=== PATIENT | female | born 1930 | race Caucasian/White ===

== ENCOUNTER → 2016-12-16 | Outpatient (CLI) | payer MEDICARE ==
[~2016-12-16] MED LIST: ACET-822 PO; ALPR0.25 PO; AMLO5CAP PO; ASPI-110 PO; ATEN100T PO; ATOR40TA16 PO; CALCTAB94 PO; ENAL1SOL2 PO; ENAL20TA PO; FLAX1000 PO; FOLI400T PO; HYDR25TA5 PO; LEVO50TA4 PO; MELA3TAB23 PO; NAPR500T PO; OCUVTAB PO; PYRI100T PO; SERT-129 PO; TRAM50TA PO; VITA10002 PO; WHEA1POW9 PO
== END ==
LOC: CPRE 11:37
PROVIDERS: ATTEND Neurological Surgery
DX: Z01.812 Encounter for preprocedural laboratory examination (principal); S22.079A Unspecified fracture of T9-T10 vertebra, initial encounter for closed fracture; X58.XXXA Exposure to other specified factors, initial encounter

== ENCOUNTER → 2016-12-17 | Day surgery (SDC) | payer MEDICARE ==
[~2016-12-17] VITALS: Ht 157.5 cm; Wt 58.2 kg
[~2016-12-17] MED LIST changes: +BUPIVACAINE/EPINEPHRINE 0.5% PF 30 ML VIAL ONE; +CHLORHEXIDINE GLUCONATE 2 % 1 PACK (2 CLOTHS) TOPICAL PRN; +DO NOT ADM ANY ANTICOAGULANT DRUGS PRN; -ENAL1SOL2 PO; +FAMOTIDINE 20 MG/2 ML VIAL ONE; +INSULIN HUMAN REGULAR 1,000 UNITS/10 ML VIAL SQ PRN; +LACTATED RINGER'S 1000 ML IV PRN; +METOPROLOL TARTRATE 25 MG TAB PO PRN; +MIDAZOLAM HCL 2 MG/2 ML VIAL ONE; +NEOSTIGMINE 3 MG/3 ML SYR IV ONE; +ONDANSETRON HCL 4 MG/2 ML VIAL IV PUSH ONE; +POVIDONE IODINE 5% (ANTISEPSIS KIT) 4 APPLICATIONS EACH NARE PRN; +PROPOFOL 200 MG/20 ML AMP IV ONE; +SODIUM CHLOR 0.9% 1000 ML INJ 1,000 ML IV SCH; +SODIUM CHLORID 0.9% 500 ML IV PRN; +SUGAMMADEX SODIUM 200 MG/2 ML VIAL IV PUSH ONE; +VANCOMYCIN HCL 1000 MG ON-CALL/NS 250 ML IV SCH; +ceFAZolin INJ 1,000 MG VIAL ONE; +ePHEDrine/NS 25 MG/5 ML SYR IV ONE; +fentaNYL CITRATE 250 MCG/5 ML AMP ONE
[2016-12-17 06:41] VITALS: BP 171/73; PULSE 59; RESP 16; TEMP 98.1; O2SAT 99
--- NOTE | 2016-12-17 09:32 | PD.OP ---
Jennifer Hines MD Operative Report Date of Surgery: Dec 17, 2016 Preoperative Diagnosis: Intractable back pain from T10 vertebral body compression fracture Postoperative Diagnosis: Same Procedure: Thoracic T10 kyphoplasty Anesthesia: Gen. endotracheal by Jigar Porter Surgeon: Fernando Bishop M.D. Cracking Still Operator(s): None Operation and Findings: Following administration of a general endotracheal anesthesia patient was placed in the prone position on chest rolls and Lencho table and all pressure points adequate padded. IV antibiotics were administered intravenously and the thoracolumbar area posteriorly prepped with a Betadine solution and painted and draped in the usual sterile fashion. Using AP and lateral arthroscopy guidance the stab incision sites were made at the T10 level overlying the pedicles bilaterally after infiltrating the skin was 0.5% Marcaine. The Jamshidi needles were then passed into the vertebral body to the pedicles on both sides and the hand-held drill trajectory created. The drills were then removed and then the balloons were passed into the vertebral body through both sides and dilated to create a cavity and restore vertebral body height. Subsequently the balloons were removed and the cavity packed with the bone cement 4 cc total. The guide was then removed and Steri-Strips applied at the puncture wounds along with a sterile dressing. He was then turned in spine position, extubated and taken to the recovery room. There were no intraoperative medications and all sponge and needle count was correct at the end the procedure. Estimated blood loss less than 5 cc. Fernando Bishop MD Dec 17, 2016 09:32
--- NOTE | 2016-12-17 10:05 | RADRPT ---
EXAM DATE/TIME: 12/17/2016 09:24 [facility] COMPARISON: No previous studies available for comparison. INDICATIONS : Post-op T-10 kyphoplasty. MEDICAL HISTORY : None. SURGICAL HISTORY : None. ENCOUNTER: Initial ACUITY: 1 day PAIN SCORE: Non-responsive. LOCATION: Thoracic spine. FINDINGS: Underlying is anatomic status post T10 kyphoplasty. There is good filling ofthe cement. There is no epidural cement. CONCLUSION: T10 kyphoplasty in anatomic alignment. Nakul Oquendo MD FACR on December 17, 2016 at 10:02 Board Certified Radiologist. This report was verified electronically.
[2016-12-17 11:52] VITALS: BP 142/67; PULSE 57; RESP 16; O2SAT 97
[2016-12-17 12:23] VITALS: TEMP 96
== END | disposition home or self-care (01) ==
LOC: HSDC 05:44
PROVIDERS: ATTEND Neurological Surgery
DX: S22.079A Unspecified fracture of T9-T10 vertebra, initial encounter for closed fracture (principal); I10 Essential (primary) hypertension; E78.5 Hyperlipidemia, unspecified; K21.9 Gastro-esophageal reflux disease without esophagitis; F41.9 Anxiety disorder, unspecified; E03.9 Hypothyroidism, unspecified; M19.90 Unspecified osteoarthritis, unspecified site; Z88.1 Allergy status to other antibiotic agents; Z88.8 Allergy status to other drugs, medicaments and biological substances; Z79.82 Long term (current) use of aspirin; W18.30XA Fall on same level, unspecified, initial encounter
CPT/HCPCS: 22513; 72070; J2250; J2405; J2710; J3010; J3370; J7050; J7120; J0690

== ENCOUNTER 2017-04-30 19:46 | Emergency (ER) | payer MEDICARE ==
[~2017-04-30] VITALS: Ht 157.5 cm; Wt 58.8 kg
[~2017-04-30 19:46] MED LIST changes: -ACET-822 PO; -BUPIVACAINE/EPINEPHRINE 0.5% PF 30 ML VIAL ONE; -CHLORHEXIDINE GLUCONATE 2 % 1 PACK (2 CLOTHS) TOPICAL PRN; -DO NOT ADM ANY ANTICOAGULANT DRUGS PRN; -FAMOTIDINE 20 MG/2 ML VIAL ONE; -INSULIN HUMAN REGULAR 1,000 UNITS/10 ML VIAL SQ PRN; -LACTATED RINGER'S 1000 ML IV PRN; -METOPROLOL TARTRATE 25 MG TAB PO PRN; -MIDAZOLAM HCL 2 MG/2 ML VIAL ONE; -NEOSTIGMINE 3 MG/3 ML SYR IV ONE; -ONDANSETRON HCL 4 MG/2 ML VIAL IV PUSH ONE; -POVIDONE IODINE 5% (ANTISEPSIS KIT) 4 APPLICATIONS EACH NARE PRN; -PROPOFOL 200 MG/20 ML AMP IV ONE; -SODIUM CHLOR 0.9% 1000 ML INJ 1,000 ML IV SCH; -SODIUM CHLORID 0.9% 500 ML IV PRN; -SUGAMMADEX SODIUM 200 MG/2 ML VIAL IV PUSH ONE; -TRAM50TA PO; -VANCOMYCIN HCL 1000 MG ON-CALL/NS 250 ML IV SCH; -ceFAZolin INJ 1,000 MG VIAL ONE; -ePHEDrine/NS 25 MG/5 ML SYR IV ONE; -fentaNYL CITRATE 250 MCG/5 ML AMP ONE
[2017-04-30 20:05] VITALS: BP 166/80; PULSE 65; RESP 20; TEMP 98; O2SAT 98
--- NOTE | 2017-04-30 21:15 | PD ---
HPI . Posterior cephalgia Chief Complaint: Back/ Neck Pain or Injury Time Seen by Provider: 20:16 Travel History International Travel<30 days: No Contact w/Intl Traveler<30days: No Traveled to known affect area: No History of Present Illness HPI 86-year-old female presents to the emergency department for evaluation of acute onset posterior cephalgia that started this afternoon when she was sitting at her desk doing paperwork. Patient states the pain was so severe and sudden that she did not know what to do. She tried to rest thinking it would resolve. It has not resolved. It is localized to the left lateral aspect of the posterior skull. The patient denies being on any blood thinners. Patient denies any paresthesias. The patient denies any fevers, chills, malaise, chest pain, shortness breath. There is no focal neurological deficit at this time. Patient does not have a history of CVA. Patient states there are no alleviating factors. The patient is not photophobic. PFSH Past Medical History Arthritis: Yes Asthma: No Depression: Yes Heart Rhythm Problems: No Cancer: No Cardiovascular Problems: No High Cholesterol: Yes Chest Pain: No Congestive Heart Failure: No COPD: No Cerebrovascular Accident: No Diabetes: No Diminished Hearing: Yes (bilaterally) Endocrine: Yes GERD: No Genitourinary: No Headaches: No Hepatitis: No Hiatal Hernia: Yes Hypertension: Yes Immune Disorder: No Kidney Stones: No Musculoskeletal: Yes ("polymyalgia in remission" CHRONIC BACK PAIN) Neurologic: No Psychiatric: Yes (ANXIETY) Reproductive: No Respiratory: No Immunizations Current: Yes Migraines: No Myocardial Infarction: No Renal Failure: No Seizures: No Sleep Apnea: No Thyroid Disease: Yes (HYPO) Ulcer: No Tetanus Vaccination: > 5 Years Influenza Vaccination: Yes Past Surgical History Abdominal Surgery: No AICD: No Appendectomy: No Cardiac Surgery: No Cholecystectomy: No Ear Surgery: No Endocrine Surgery: No Eye Surgery: Yes (bilateral cataract surgery) Genitourinary Surgery: No Gynecologic Surgery: Yes (HYSTERECTOMY) Hysterectomy: Yes (1971,complete) Joint Replacement: No Oral Surgery: No Pacemaker: No Thoracic Surgery: No Other Surgery: Yes Social History Alcohol Use: Yes ("wine with dinner") Tobacco Use: No (quit 1988) Substance Use: No Allergies-Medications (Allergen,Severity, Reaction): Coded Allergies: metronidazole (Unverified Allergy, Severe, rash, 10/14/17) RASH hydrocodone (Unverified Allergy, Unknown, 04/30/17) lovastatin (Unverified Allergy, Unknown, 04/30/17) verapamil (Unverified Allergy, Unknown, 04/30/17) paroxetine (Unverified Adverse Reaction, Severe, nausea, 04/30/17) NAUSEA Reported Meds & Prescriptions Reported Meds & Active Scripts Active Reported Enalapril (Enalapril Maleate) 20 Mg Tab 20 Mg PO BID Vitamin B-6 (Pyridoxine HCl) 100 Mg Tab 100 Mg PO DAILY Vitamin B-12 (Cyanocobalamin) 1,000 Mcg Tab 1,000 Mcg PO DAILY Sertraline (Sertraline HCl) 100 Mg Tab 100 Mg PO DAILY Ocuvite (Multiple Vitamins W/ Minerals) 1 Tab 1 Tab PO DAILY Naproxen 500 Mg Tab 500 Mg PO BID Melatonin Cr (Melatonin) 3 Mg Tab 1 Tab PO HS Levothyroxine (Levothyroxine Sodium) 50 Mcg Tab 50 Mcg PO DAILY Hydrochlorothiazide 25 Mg Tab 25 Mg PO DAILY Folic Acid 400 Mcg Tab 400 Mcg PO DAILY Flaxseed Oil (Flaxseed (Linseed)) 1,000 Mg Cap 1 Tab PO DAILY Calcium 600 (Calcium Carbonate) 1,500 Mg Tab 1,500 Mg PO Benefiber (Wheat Dextrin) 144 Gm Powder 1 Tab-Cap PO DAILY PRN Atorvastatin (Atorvastatin Calcium) 40 Mg Tab 40 Mg PO HS Atenolol 100 Mg Tab 100 Mg PO DAILY Aspirin 81 (Aspirin) 81 Mg Tabdr 81 Mg PO DAILY Amlodipine-Benazepril 5-10 Mg Cap 1 Cap PO DAILY Alprazolam 0.25 Mg Tab 0.25 Mg PO DAILY PRN Review of Systems Except as stated in HPI: all other systems reviewed are Neg Physical Exam Narrative GENERAL: Well-nourished, well-developed 86-year-old female patient in no respiratory distress. Patient is moaning and holding the occipital portion of her head. SKIN: Focused skin assessment warm/dry. HEAD: Normocephalic. Atraumatic. NEUROLOGICAL: Awake and alert. Cranial nerves II through XII intact. Motor and sensory grossly within normal limits. Five out of 5 muscle strength in all muscle groups. Normal speech. EYES: No scleral icterus. No injection or drainage. NECK: Supple, trachea midline. No JVD or lymphadenopathy. CARDIOVASCULAR: Regular rate and rhythm without murmurs, gallops, or rubs. RESPIRATORY: Breath sounds equal bilaterally. No accessory muscle use. GASTROINTESTINAL: Abdomen soft, non-tender, nondistended. MUSCULOSKELETAL: No cyanosis, or edema. BACK: Nontender without obvious deformity. No CVA tenderness. Data Data Last Documented VS Vital Signs Date Time Temp Pulse Resp B/P (MAP) Pulse Ox O2 Delivery O2 Flow Rate FiO2 04/30/17 20:05 98.0 65 20 166/80 (108) [address] Brain W/O Iv Contrast(Rout) (04/30/17 21:07) Ct Cerv Spine W/O Contrast (04/30/17 21:29) MDM Medical Decision Making Medical Screen Exam Complete: Yes Emergency Medical Condition: Yes Differential Diagnosis Differential diagnoses include but not limited to ICH, thunderclap headache, migraine headache, occipital neuralgia Narrative Course 86-year-old female presents to the emergency department for evaluation of sudden onset pain in the occipital portion of her head. The patient states this has never happened before. Brain CT ordered and pending. CT shows no acute abnormalities. Based on patient's symptoms, clinical presentation, radiological results, vital sign review and physical exam it is not necessary to admit the patient to the hospital or keep the patient in the emergency department for further evaluation. Patient will be given an IM injection of Toradol and discharged home with instructions to use ice and follow-up with her primary care. Diagnosis Primary Impression: Headache Qualified Codes: G44.53 - Primary thunderclap headache Patient Instructions: Acute Headache (ED), General Instructions Additional Instructions: Please return to emergency department if your symptoms return or worsen. Follow up with your primary care provider. May use [id number] Motrin or Tylenol as need for pain relief. Disposition: 01 DISCHARGE HOME Condition: Stable LilyVeronica hahn Lois ERNE Apr 30, 2017 21:15
--- NOTE | 2017-04-30 22:09 | RADRPT ---
EXAM DATE/TIME: 04/30/2017 21:28 [facility] COMPARISON: No previous studies available for comparison. INDICATIONS : Head and neck pain that started today. RADIATION DOSE: 53.18 CTDIvol (mGy) MEDICAL HISTORY : Hypertension. SURGICAL HISTORY : None. ENCOUNTER: Initial ACUITY: 1 day PAIN SCALE: 7/10 LOCATION: frontal TECHNIQUE: Multiple contiguous axial images were obtained of the head. Using automated exposure control and adj ustment of the mA and/or kV according to patient size, radiation dose was kept as low as reasonably a chievable to obtain optimal diagnostic quality images. DICOM format image data is available electro nically for review and comparison. FINDINGS: CEREBRUM: The ventricles are normal for age. No evidence of midline shift, mass lesion, hemorrhage or acute in farction. Chronic appearing hypodense changes are seen in the cerebral white matter. No extra-axial f luid collections are seen. POSTERIOR FOSSA: The cerebellum and brainstem are intact. The 4th ventricle is midline. The cerebellopontine angle i s unremarkable. EXTRACRANIAL: The visualized portion of the orbits is intact. SKULL: The calvaria is intact. No evidence of skull fracture. CONCLUSION: 1. Cerebral white matter hypodensity characteristic of chronic microvascular ischemic disease. 2. No evidence of acute infarct, hemorrhage, mass or edema. Ben St MD on April 30, 2017 at 22:06 Board Certified Radiologist. This report was verified electronically.
--- NOTE | 2017-04-30 22:12 | RADRPT ---
EXAM DATE/TIME: 04/30/2017 21:28 [facility] COMPARISON: No previous studies available for comparison. INDICATIONS : Left sided neck pain. RADIATION DOSE: 25.26 CTDIvol (mGy) MEDICAL HISTORY : Hypertension. SURGICAL HISTORY : None. ENCOUNTER: Initial ACUITY: 1 day PAIN SCALE: 8/10 LOCATION: Left neck TECHNIQUE: Volumetric scanning of the cervical spine was performed. Multiplanar reconstructions in the sagittal, coronal and oblique axial planes were performed. Using automated exposure control and adjustment o f the mA and/or kV according to patient size, radiation dose was kept as low as reasonably achievable to obtain optimal diagnostic quality images. DICOM format image data is available electronically f or review and comparison. FINDINGS: Cranial cervical and cervical vertebral body alignment is well maintained without evidence of listhes is. Vertebral body height is intact. There is no evidence of compression deformity. Posterior elements are intact. There is moderate left-sided facet arthropathy at C2-3, C3-4 and C4-5. Moderate to advanced degenerative disc disease is noted at C5-6 and C6-7. There is disc space narrowi ng with marginal spondylosis. There are no significant soft tissue abnormalities. CONCLUSION: Degenerative disc disease and facet arthropathy. No acute abnormality or significant soft tissue abnormality. Ben St MD on April 30, 2017 at 22:08 Board Certified Radiologist. This report was verified electronically.
[2017-04-30] MEDS ORDERED: KETOROLAC TROMETHAMINE 60 MG/2 ML (IM) VIAL IM ONE (22:45)
== END 2017-04-30 23:01 | disposition home or self-care (01) ==
LOC: PHEFT 19:46
DX: G44.53 Primary thunderclap headache (principal)
CPT/HCPCS: 70450; 72125; 96372; 99285; J1885

== ENCOUNTER 2018-04-25 11:01 | Observation (INO) ==
[2018-04-25] MEDS ORDERED: Sod Chloride 0.9% Inj 1,000 ML IV.CONT SCH (11:30)
--- NOTE | 2018-04-25 11:36 | ED ---
HPI General Chief complaint: Weakness Stated complaint: General Weakness Time Seen by Provider: 04/25/18 11:16 Source: patient and family Mode of arrival: EMS Limitations: no limitations History of Present Illness HPI narrative: This 87-year-old female has not been feeling well for the past month or so. She has had intermittent bouts of abdominal pain. When she has the abdominal pain it seems to be in the mid abdomen. It is sometimes associated with vomiting. She has been disoriented off and on. Her says that she gets confused at times but at other times she seems to be okay this morning she was getting up and she got very weak and she fell to her knees. He says he did not lose consciousness but she had to be put in bed at that time and he called paramedics she has no history of heart disease. She has not been having fever. He was seen here last week and was diagnosed with costochondritis. She did eat something this morning in general her appetite is been quite poor. She is not actually having abdominal pain now. Related Data Home Medications Medication Instructions Recorded Confirmed amlodipine 10 mg PO DAILY 04/16/18 04/25/18 atenolol 100 mg PO DAILY 04/16/18 04/25/18 atorvastatin 40 mg PO DAILY 04/16/18 04/25/18 calcium carbonate-vitamin D3 1 tab PO DAILY 04/16/18 04/25/18 [Calcium 600 + D(3)] cyanocobalamin (vitamin B-12) 500 mcg PO DAILY 04/16/18 04/25/18 [Vitamin B-12] enalapril maleate 20 mg PO BID 04/16/18 04/25/18 fish,bora,flax oils-om3,6,9no1 1 tab PO DAILY 04/16/18 04/25/18 [[place] 3-6-9] folic acid 0.8 mg PO DAILY 04/16/18 04/25/18 gabapentin 300 mg PO DAILY 04/16/18 04/25/18 hydrochlorothiazide 25 mg PO DAILY 04/16/18 04/25/18 levothyroxine 50 mcg PO DAILY 04/16/18 04/25/18 magnesium 500 mg PO DAILY 04/16/18 04/25/18 pyridoxine (vitamin B6) [Vitamin 100 mg PO QID 09/30/18 10/09/18 B-6] sertraline 50 mg PO DAILY 04/16/18 04/25/18 vit C-vit N-xmvfgg-[id number]-om-3 1 cap PO DAILY 04/16/18 04/25/18 [Ocuvite] Previous Rx's Medication Instructions Recorded ibuprofen 600 mg PO Q8H PRN #100 cap 04/16/18 ondansetron [Zofran ODT] 4 mg PO Q6-8H PRN #10 tab 04/16/18 Allergies Allergy/AdvReac Type Severity Reaction Status Date / Time metronidazole Allergy Severe rash Verified 04/16/18 22:12 hydrocodone Allergy Unknown unknown Verified 04/16/18 22:12 lovastatin Allergy Unknown unknown Verified 04/16/18 22:12 verapamil Allergy Unknown unknown Verified 04/16/18 22:12 paroxetine AdvReac Severe nausea Verified 04/16/18 22:12 Review of Systems Constitutional Reports malaise, Reports poor appetite and Reports weakness Gastrointestinal Reports abdominal pain and Reports nausea Neurologic Reports confusion and Reports weakness [facility] Medical History Medical History History of anxiety (Acute) History of depression (Acute) History of high blood pressure (Acute) History of high cholesterol (Acute) History of hypothyroidism (Acute) Hx of chronic arthritis (Acute) Hx of hysterectomy (Acute) Hx of insomnia (Acute) Surgical History Surgical History History of back surgery (Acute) Social History Social History Substance History: No History of Abuse Smoking Status: Former smoker Tobacco Type: Cigarettes How Often Do You Have a Drink Containing Alcohol: 4 or more times a week Recent Travel in [facility] within the Last 8 Weeks: No Recent Out of Country Travel within the Last 8 Weeks: No Immunization History Tetanus Immunization: Unsure Exam Narrative Exam Narrative: GENERAL: Well-developed female SKIN: Focused skin assessment warm/dry. HEAD: Atraumatic. Normocephalic. EYES: Pupils equal and round. No scleral icterus. No injection or drainage. ENT: No nasal bleeding or discharge. Mucous membranes pink and moist. NECK: Trachea midline. No JVD. CARDIOVASCULAR: Regular rate and rhythm. No murmur appreciated. RESPIRATORY: No accessory muscle use. Clear to auscultation. Breath sounds equal bilaterally. GASTROINTESTINAL: Abdomen soft, there is some epigastric tenderness, nondistended. Hepatic and splenic margins not palpable. MUSCULOSKELETAL: No obvious deformities. No clubbing. No cyanosis. No edema. NEUROLOGICAL: Awake and alert. No obvious cranial nerve deficits. Motor grossly within normal limits. Normal speech. PSYCHIATRIC: Appropriate mood and affect; insight and judgment normal. She is oriented x3 at this time Course Initial Documented Vital Signs Temperature 98.0 F 04/25/18 11:07 Pulse Rate 48 L 04/25/18 11:07 Respiratory Rate 15 04/25/18 11:07 Blood Pressure 105/46 L 04/25/18 11:07 Pulse Oximetry 99 04/25/18 11:07 Last Documented Vital Signs Temperature 98.0 F 04/25/18 11:07 Pulse Rate 46 L 04/25/18 13:20 Respiratory Rate 14 04/25/18 13:20 Blood Pressure 108/47 L 04/25/18 13:20 Pulse Oximetry 98 04/25/18 13:20 Medical Decision Making [facility] Narrative Medical decision making narrative: Patient presents with intermittent fusion and altered mental status. She has generalized weakness and intermittent abdominal pain. CT of the abdomen and pelvis does not reveal an etiology. Case discussed with Dr. Torres and she will be admitted for observation Medical Screen Exam Complete: Yes Emergency Medical Condition: Yes Differential Diagnosis Differential Diagnosis: Differential includes electrolyte imbalance, dehydration , subdural hemorrhage, diverticulitis, Lab Data Result diagrams: 04/25/18 11:44 04/25/18 11:44 Lab Results 04/25/18 04/25/18 04/25/18 Range/Units 11:44 11:44 11:44 CBC w Diff Auto diff final WBC 11.9 H (4.0-11.0) th/mm3 RBC 3.43 L (4.00-5.30) mil/mm3 Hgb 9.9 L (11.6-15.3) gm/dL Hct 30.6 L (35.0-46.0) % MCV 89.2 (80.0-100.0) fL MCH 28.8 (27.0-34.0) pg MCHC 32.3 (32.0-36.0) % RDW 12.7 (11.6-17.2) % Plt Count 505 H (150-450) th/mm3 MPV 6.5 L (7.0-11.0) fL Neut % (Auto) 78.3 H (16.0-70.0) % Lymph % (Auto) 12.6 (9.0-44.0) % [place] % (Auto) 8.2 H (0.0-8.0) % Eos % (Auto) 0.6 (0.0-4.0) % Baso % (Auto) 0.3 (0.0-2.0) % Neut # (Auto) 9.4 H (1.8-7.7) th/mm3 Lymph # (Auto) 1.5 (1.0-4.8) th/mm3 [place] # (Auto) 1.0 H (0.0-0.9) th/mm3 Eos # (Auto) 0.1 (0.0-0.4) th/mm3 Baso # (Auto) 0.0 (0.0-0.2) th/mm3 WBC Differential . Differential Comment . PT 10.4 (9.8-11.6) sec INR 1.0 Ratio APTT 31.8 H (24.3-30.1) sec Sodium 122 L* (136-145) meq/L Potassium 3.6 (3.5-5.1) meq/L Chloride 81 L (98-107) meq/L Carbon Dioxide 30.7 (21.0-32.0) meq/L Anion Gap 10 (5-15) meq/L BUN 23 H (7-18) mg/dL Creatinine 1.60 H (0.50-1.00) mg/dL Estimated GFR 30 L (>89) mL/min Random Glucose 100 (74-106) mg/dL Calcium 8.4 L (8.5-10.1) mg/dL Total Bilirubin 0.4 (0.2-1.0) mg/dL AST 34 (15-37) U/L ALT 27 (10-53) U/L Alkaline Phosphatase 91 (45-117) U/L Troponin I Less than 0.02 L (0.02-0.05) ng/mL Total Protein 6.9 (6.4-8.2) g/dL Albumin 2.8 L (3.4-5.0) g/dL Lipase 204 (73-393) U/L TSH (0.358-3.740) uIU/mL 04/25/18 Range/Units 11:44 CBC w Diff WBC (4.0-11.0) th/mm3 RBC (4.00-5.30) mil/mm3 Hgb (11.6-15.3) gm/dL Hct (35.0-46.0) % MCV (80.0-100.0) fL MCH (27.0-34.0) pg MCHC (32.0-36.0) % RDW (11.6-17.2) % Plt Count (150-450) th/mm3 MPV (7.0-11.0) fL Neut % (Auto) (16.0-70.0) % Lymph % (Auto) (9.0-44.0) % [place] % (Auto) (0.0-8.0) % Eos % (Auto) (0.0-4.0) % Baso % (Auto) (0.0-2.0) % Neut # (Auto) (1.8-7.7) th/mm3 Lymph # (Auto) (1.0-4.8) th/mm3 [place] # (Auto) (0.0-0.9) th/mm3 Eos # (Auto) (0.0-0.4) th/mm3 Baso # (Auto) (0.0-0.2) th/mm3 WBC Differential Differential Comment PT (9.8-11.6) sec INR Ratio APTT (24.3-30.1) sec Sodium (136-145) meq/L Potassium (3.5-5.1) meq/L Chloride (98-107) meq/L Carbon Dioxide (21.0-32.0) meq/L Anion Gap (5-15) meq/L BUN (7-18) mg/dL Creatinine (0.50-1.00) mg/dL Estimated GFR (>89) mL/min Random Glucose (74-106) mg/dL Calcium (8.5-10.1) mg/dL Total Bilirubin (0.2-1.0) mg/dL AST (15-37) U/L ALT (10-53) U/L Alkaline Phosphatase (45-117) U/L Troponin I (0.02-0.05) ng/mL Total Protein (6.4-8.2) g/dL Albumin (3.4-5.0) g/dL Lipase (73-393) U/L TSH 5.020 H (0.358-3.740) uIU/mL Imaging Data Radiologist's impression: Abdomen/Pelvis CT 04/25/18 11:28 CONCLUSION: 1. Mild diverticulosis with no definite inflammatory change. 2. Unremarkable appearing gallbladder. 3. There is a small amount of fluid in the cul-de-sac which is nonspecific finding. 4. No visualized etiology to explain the patient's pain. Chest X-Ray 04/25/18 11:28 CONCLUSION: No acute intrathoracic disease. Stable examination. Head CT 04/25/18 11:32 CONCLUSION: 1. No acute hemorrhage or mass effect. 2. Stable atrophy and chronic small vessel ischemic changes. . Discharge Plan Discharge Disposition Patient Disposition: 30 Still Patient Discharge Details Diagnosis: Hyponatremia Physicians Team ED Provider: Gerard Hardy Rxs /Orders / Referrals /Forms Prescriptions: No Action atorvastatin 40 mg Tablet 40 mg PO DAILY RF: 0 atenolol 100 mg Tablet 100 mg PO DAILY RF: 0 enalapril maleate 20 mg Tablet 20 mg PO BID RF: 0 cyanocobalamin (vitamin B-12) [Vitamin B-12] 1,000 mcg Tablet 500 mcg PO DAILY RF: 0 amlodipine 10 mg Tablet 10 mg PO DAILY RF: 0 levothyroxine 50 mcg Tablet 50 mcg PO DAILY RF: 0 gabapentin 300 mg Capsule 300 mg PO DAILY RF: 0 magnesium 250 mg Tablet 500 mg PO DAILY RF: 0 hydrochlorothiazide 25 mg Tablet 25 mg PO DAILY RF: 0 pyridoxine (vitamin B6) [Vitamin B-6] 100 mg Tablet 100 mg PO QID RF: 0 sertraline 50 mg Tablet 50 mg PO DAILY RF: 0 folic acid 800 mcg Tablet 0.8 mg PO DAILY RF: 0 calcium carbonate-vitamin D3 [Calcium 600 + D(3)] 600-125 mg-unit Tablet 1 tab PO DAILY RF: 0 vit C-vit S-htxgcg-igb-om-3 [Ocuvite] 674-08-0-150 vf-eqmu-xg-mg Capsule 1 cap PO DAILY RF: 0 fish,bora,flax oils-om3,6,9no1 [[place] 3-6-9] 1,200 mg Capsule 1 tab PO DAILY RF: 0 ondansetron [Zofran ODT] 4 mg tablet,disintegrating 4 mg PO Q6-8H PRN (Reason: nausea and vomiting) Qty: 10 RF: 0 ibuprofen 200 mg capsule 600 mg PO Q8H PRN (Reason: pain) Qty: 100 RF: 0 Discharge Interventions Interventions: Vital Signs Last Done: 04/25/18 13:20 Status ED Status: With Doctor
[2018-04-25 11:53] LABS: Baso % (Auto) 0.3 % (0.0-2.0); Eos # (Auto) 0.1 th/mm3 (0.0-0.4); Eos % (Auto) 0.6 % (0.0-4.0); Hematocrit 30.6 % (35.0-46.0); Hemoglobin 9.9 gm/dL (11.6-15.3); Lymph # (Auto) 1.5 th/mm3 (1.0-4.8); Lymph % (Auto) 12.6 % (9.0-44.0); Mean Corpuscular HGB Conc 32.3 % (32.0-36.0); Mean Corpuscular Hemoglobin 28.8 pg (27.0-34.0); Mean Corpuscular Volume 89.2 fL (80.0-100.0); Mean Platelet Volume 6.5 fL (7.0-11.0); Mono % (Auto) 8.2 % (0.0-8.0); Neut # (Auto) 9.4 th/mm3 (1.8-7.7); Neut % (Auto) 78.3 % (16.0-70.0); Platelet Count 505 th/mm3 (150-450); Red Blood Count 3.43 mil/mm3 (4.00-5.30); Red Cell Distribution Width 12.7 % (11.6-17.2); White Blood Count 11.9 th/mm3 (4.0-11.0)
--- NOTE | 2018-04-25 12:00 | XR ---
EXAM DATE: 04/25/2018 11:28 AM EDT AGE/SEX: 87 years / Female INDICATIONS: Fatigue and weakness, fell. CLINICAL DATA: This is the patient's initial encounter. Patient reports that signs and symptoms have been present for 4 - 6 days and indicates a pain score of 2/10. MEDICAL/SURGICAL HISTORY: Hypothyroidism. Hypertension. Hypercholesterolemia. Arthritis. H ysterectomy. Back surgery. COMPARISON: [facility], XR CHEST PA AND LAT, 04/04/2018. . FINDINGS: A single AP view of the chest demonstrates the lungs to be symmetrically aerated without evidence of mass, infiltrate or effusion. The cardiomediastinal contours are unremarkable. Osseous structures a re intact. Previous kyphoplasty at T10. No significant change. CONCLUSION: No acute intrathoracic disease. Stable examination. Electronically signed by: Asif Taylor MD 04/25/2018 11:59 AM EDT
[2018-04-25 12:26] LABS: Alanine Aminotransferase 27 U/L (10-53); Albumin 2.8 g/dL (3.4-5.0); Alkaline Phosphatase 91 U/L (45-117); Anion Gap 10 meq/L (5-15); Aspartate Aminotransferase 34 U/L (15-37); Blood Urea Nitrogen 23 mg/dL (7-18); Calcium 8.4 mg/dL (8.5-10.1); Carbon Dioxide 30.7 meq/L (21.0-32.0); Chloride 81 meq/L (98-107); Glomerular Filtration Rate 30 mL/min (>89); Glucose,Random 100 mg/dL (74-106); Lipase 204 U/L (73-393); Potassium 3.6 meq/L (3.5-5.1); Total Protein 6.9 g/dL (6.4-8.2)
[2018-04-25 12:30] LABS: Sodium 122 meq/L (136-145)
[2018-04-25 13:06] LABS: Activated Partial Thrombo Time 31.8 sec (24.3-30.1); Prothrombin Time 10.4 sec (9.8-11.6)
--- NOTE | 2018-04-25 13:13 | CT ---
EXAM DATE: 04/25/2018 12:43 PM EDT AGE/SEX: 87 years / Female INDICATIONS: Altered mental status. General weakness. Fell this morning. CLINICAL DATA: This is the patient's initial encounter. Patient reports that signs and symptoms have been present for 1 day and indicates a pain score of 0/10. MEDICAL/SURGICAL HISTORY: Hypertension. Hysterectomy. Back surgery. RADIATION DOSE: 46.71 CTDI (mGy) COMPARISON: [facility], CT BRAIN W/O CONTRAST, 04/30/2017. . TECHNIQUE: CT of the head without contrast. Using automated exposure control and adjustment of the mA and/or kV according to patient size, radiation dose was kept as low as reasonably achievable to ob tain optimal diagnostic quality images. DICOM format image data is available electronically for revi ew and comparison. FINDINGS: Cerebrum: The ventricles are normal for age with moderate atrophic change again noted. Stable chroni c small vessel ischemic changes are again noted. No evidence of midline shift, mass lesion, hemorrhag e or acute infarction. No extraaxial fluid collections are seen. Posterior Fossa: The cerebellum and brainstem are intact. The 4th ventricle is midline. The cerebe llopontine angle is unremarkable. Extracranial: The visualized portion of the orbits is intact. Skull: The calvaria is intact. No evidence of skull fracture. CONCLUSION: 1. No acute hemorrhage or mass effect. 2. Stable atrophy and chronic small vessel ischemic changes. . Electronically signed by: Mateo Wooten MD 04/25/2018 1:11 PM EDT
--- NOTE | 2018-04-25 13:24 | CT ---
EXAM DATE: 04/25/2018 11:28 AM EDT AGE/SEX: 87 years / Female INDICATIONS: Intermittent non specific abdominal pain. CLINICAL DATA: This is the patient's initial encounter. Patient reports that signs and symptoms have been present for 3 weeks and indicates a pain score of 6/10. MEDICAL/SURGICAL HISTORY: Hypertension. Hypercholesterolemia. Hypothyroidism. Hysterectomy. B ack surgery. RADIATION DOSE: 6.96 CTDI (mGy) COMPARISON: POI, CT ABDOMEN AND PELVIS W/ CONTRAST, 11/26/2015. . TECHNIQUE: Multiple contiguous axial images were obtained through the abdomen. Images were obtained using multiple row detector helical technique. Using automated exposure control and adjustment of the mA and/or kV according to patient size, radiation dose was kept as low as reasonably achievable to o btain optimal diagnostic quality images. DICOM format image data is available electronically for rev iew and comparison. FINDINGS: Lower Lungs: The visualized lower lungs are clear. Liver: The liver has a homogeneous density without space-occupying lesion. There is no dilation of th e biliary tree. The gallbladder remains unremarkable in appearance. Spleen: Homogeneous density without enlargement. Pancreas: Unremarkable without mass or calcification. Kidneys: Normal in size and shape. No evidence of mass or hydronephrosis. Adrenal Glands: Unremarkable. Aorta: The aorta and proximal iliac vessels are grossly unremarkable without aneurysmal dilation. Bowel/Mesentery: Multiple diverticuli noted in the sigmoid colon with no definite inflammatory ramirez e. There is a small amount of fluid noted in the posterior pelvis. No oral or intravenous contrast wa s given limiting the sensitivity of the exam. The cecum and sigmoid colon have a normal configuration . Abdominal Wall: Intact. Retroperitoneum: No evidence of adenopathy in the retrocrural, para-aortic, or deep pelvic regions. Bladder: Contours are smooth. Reproductive Organs: No abnormal masses or calcifications seen. Is post hysterectomy. There are mult iple calcified phleboliths in the pelvis. Inguinal: The inguinal region is unremarkable without evidence of adenopathy. Bony Structures: Osteopenia, degenerative change and mild scoliosis are again noted. The patient is status post kyphoplasty in the lower thoracic spine. CONCLUSION: 1. Mild diverticulosis with no definite inflammatory change. 2. Unremarkable appearing gallbladder. 3. There is a small amount of fluid in the cul-de-sac which is nonspecific finding. 4. No visualized etiology to explain the patient's pain. Electronically signed by: Mateo Wooten MD 04/25/2018 1:22 PM EDT
[2018-04-25 14:28] LABS: Bilirubin,Urine Negative (Negative); Clarity,Urine Clear (Clear); Color,Urine Yellow (Yellw/Straw); Glucose,Urine (UA) Negative (Negative); Leukocyte Esterase,Urine Negative (Negative); Nitrite,Urine Negative (Negative); PH,Urine 6.5 (5.0-8.5); Specific Gravity,Urine Less/Equal 1.005 (1.002-1.035); Urobilinogen,Urine 0.2 mg/dL (Less than 2)
[2018-04-25 14:33] LABS: Squamous Epithelial Cell,Urine 0-5 /hpf (0-5)
[2018-04-25] MEDS ORDERED: Bisacodyl 10 MG Supp RECTAL PRN (15:40)
--- NOTE | 2018-04-25 16:51 | P.HP ---
History of Present Illness Service: [facility] hospitalist Primary Care Physician: Jennifer Garcia MD Chief Complaint: weakness recurrent abdominal pain History of Present Illness: HPI narrative: This 87-year-old female has not been feeling well for the past month or so. She has had intermittent bouts of abdominal pain. When she has the abdominal pain it seems to be in the mid abdomen. It is sometimes associated with vomiting and nausea. She has been disoriented off and on. Her says that she gets confused at times but at other times she seems to be okay this morning she was getting up and she got very weak and she fell to her knees. He says he did not lose consciousness but she had to be put in bed at that time and he called paramedics she has no history of heart disease. She has not been having fever. He was seen here last week and was diagnosed with costochondritis. She did eat something this morning in general her appetite is been quite poor. She states since having abdominal pain the appetite has been poor ,she called PCP and was just started on prilosec yesterday. Denies any BRBPR, chest pain,SOB did have UTI in february. Denies syncope some unsteadiness. Related Data Home Medications - Diagnosis (1) Weakness (2) Abdominal pain (3) Hypertension (4) Hyponatremia Review of Systems All other systems reviewed negative except as stated in HPI PMFSH - History History Provided By: Patient, Significant Other - Medical History Medical History: Medical History (Last Reviewed 04/25/18 @ 16:46 by Gustabo Torres MD) History of anxiety History of depression History of high blood pressure History of high cholesterol History of hypothyroidism Hx of chronic arthritis Hx of hysterectomy Hx of insomnia - Surgical History Surgical History: Surgical History (Last Reviewed 04/25/18 @ 16:46 by Gustabo Torres MD) History of back surgery - Social History I have reviewed the patient's Social History: Yes - Tobacco History Second Hand Smoke Exposure: No Tobacco Use In Past 30 Days: No Smoking Status: Former smoker Tobacco Type: Cigarettes - Alcohol History How Often Do You Have a Drink Containing Alcohol: 4 or more times a week - Substance Use History Substance History: No History of Abuse - Travel History Recent Travel in the [facility] Within the Last 8 Weeks: No Recent Travel Out of the Country Within the Last 8 Weeks: No - Immunization History Tetanus Immunization: Unsure Medications and Allergies Active Medications: Active Medications Al Hydroxide/Mg Hydroxide (Milk Of Magnesia Liq) 30 ml PO Q12H PRN PRN Reason: Mild Constipation Amlodipine Besylate (Norvasc) 10 mg PO DAILY [facility] Atenolol (Tenormin) 50 mg PO DAILY [facility] Atorvastatin Calcium (Lipitor) 40 mg PO DAILY [facility] Bisacodyl (Dulcolax Supp) 10 mg RECTAL DAILY PRN PRN Reason: SEVERE CONSITIPATION Calcium/Vitamin D (Oscal With D 250/125 Mg) 2 tab PO DAILY [facility] Cyanocobalamin (Vitamin B12) 500 mcg PO DAILY [facility] Enalapril Maleate (Vasotec) 20 mg PO BID [facility] Folic Acid (Folic Acid) 1 mg PO DAILY [facility] Gabapentin (Neurontin) 300 mg PO DAILY [facility] Sodium Chloride (Ns Inj) 1,000 mls @ 100 mls/hr IV.CONT .Q10H [facility] Stop: 04/25/18 21:29 Last Infusion: 04/25/18 15:00 Dose: 125 mls/hr Lactulose (Lactulose Liq) 30 ml PO DAILY PRN PRN Reason: SEVERE CONSITIPATION Levothyroxine Sodium (Synthroid) 50 mcg PO DAILY@0600 [facility] Magnesium Oxide (Mag-Ox) 400 mg PO DAILY@1100 [facility] Miscellaneous (Pill Splitter) 1 each OTHER UNSCH PRN PRN Reason: SEE LABEL COMMENTS Multivitamins/Minerals (Ocuvite With Lutein) 1 tab PO DAILY [facility] Ondansetron HCl (Zofran Odt) 4 mg PO Q6H PRN PRN Reason: nausea and vomiting Pantoprazole Sodium (Protonix Inj) 40 mg IV.PUSH ONCE ONE Stop: 04/25/18 16:33 Pantoprazole Sodium (Protonix Inj) 40 mg IV.PUSH Q24H [facility] Pyridoxine HCl (Vitamin B-6) 100 mg PO QID [facility] Senna/Docusate Sodium (Vero-Colace) 1 tab PO BID [facility] Sennosides (Senokot) 17.2 mg PO Q12H PRN PRN Reason: Moderate Constipation Sertraline HCl (Zoloft) 50 mg PO DAILY [facility] Sodium Chloride (Ns Flush) 2 ml IV.FLUSH PRN PRN PRN Reason: FLUSH AFTER USING IV ACCESS Allergies Allergy/AdvReac Type Severity Reaction Status Date / Time metronidazole Allergy Severe rash Verified 04/16/18 22:12 hydrocodone Allergy Unknown unknown Verified 04/16/18 22:12 lovastatin Allergy Unknown unknown Verified 04/16/18 22:12 verapamil Allergy Unknown unknown Verified 04/16/18 22:12 paroxetine AdvReac Severe nausea Verified 04/16/18 22:12 Home Medications Medication Instructions Recorded Confirmed Type amlodipine 10 mg PO DAILY 04/16/18 04/25/18 History atenolol 100 mg PO DAILY 04/16/18 04/25/18 History atorvastatin 40 mg PO DAILY 04/16/18 04/25/18 History calcium carbonate-vitamin D3 1 tab PO DAILY 04/16/18 04/25/18 History [Calcium 600 + D(3)] cyanocobalamin (vitamin B-12) 500 mcg PO DAILY 04/16/18 04/25/18 History [Vitamin B-12] enalapril maleate 20 mg PO BID 04/16/18 04/25/18 History fish,bora,flax oils-om3,6,9no1 1 tab PO DAILY 04/16/18 04/25/18 History [[place] 3-6-9] folic acid 0.8 mg PO DAILY 04/16/18 04/25/18 History gabapentin 300 mg PO DAILY 04/16/18 04/25/18 History hydrochlorothiazide 25 mg PO DAILY 04/16/18 04/25/18 History levothyroxine 50 mcg PO DAILY 04/16/18 04/25/18 History magnesium 500 mg PO DAILY 04/16/18 04/25/18 History pyridoxine (vitamin B6) [Vitamin 100 mg PO QID 04/16/18 04/25/18 History B-6] sertraline 50 mg PO DAILY 04/16/18 04/25/18 History vit C-vit [id number] 1 cap PO DAILY 04/16/18 04/25/18 History [Ocuvite] Exam Vital signs: Vital Signs 04/25/18 11:07 04/25/18 11:53 04/25/18 12:20 Temperature 98.0 F Pulse Rate 48 L 46 L 45 L Respiratory Rate 15 15 14 Blood Pressure 105/46 L 112/44 L 109/51 L Pulse Oximetry 99 99 99 04/25/18 13:20 04/25/18 15:00 04/25/18 15:25 Temperature 96.3 F L Pulse Rate 46 L 48 L 51 L Respiratory Rate 14 20 16 Blood Pressure 108/47 L 109/51 L 142/65 H Pulse Oximetry 98 97 99 Intake & Output 04/24/18 04/25/18 04/25/18 18:59 06:59 18:59 Intake Total 300 / 300 Balance 300 / 300 Weight 53.07 kg Intake: IV 300 / 300 NS Inj 1,000 ML @ 125 mls/hr IV 300 / 300 .CONT .Q8H [facility] Rx#:[id number] Narrative: GENERAL: SKIN: Warm and dry. HEAD: Atraumatic. Normocephalic. EYES: Pupils equal and round. No scleral icterus. No injection or drainage. ENT: No nasal bleeding or discharge. Mucous membranes pink and moist. NECK: Trachea midline. No JVD. CARDIOVASCULAR: Regular rate and rhythm. RESPIRATORY: No accessory muscle use. Clear to auscultation. Breath sounds equal bilaterally. GASTROINTESTINAL: Abdomen soft, non-tender, nondistended. Hepatic and splenic margins not palpable. MUSCULOSKELETAL: Extremities without clubbing, cyanosis, or edema. No obvious deformities. NEUROLOGICAL: Awake and alert. No obvious cranial nerve deficits. Motor grossly within normal limits. Five out of 5 muscle strength in the arms and legs. Normal speech. Some unsteadiness on ambulating PSYCHIATRIC: Appropriate mood and affect; insight and judgment normal. Results - Labs CBC & Chem 7: 04/25/18 11:44 04/25/18 11:44 Labs: Laboratory Results - last 24 hr 04/25/18 04/25/18 04/25/18 11:44 11:44 11:44 CBC w Diff Auto diff final WBC 11.9 H RBC 3.43 L Hgb 9.9 L Hct 30.6 L MCV 89.2 MCH 28.8 MCHC 32.3 RDW 12.7 Plt Count 505 H MPV 6.5 L Neut % (Auto) 78.3 H Lymph % (Auto) 12.6 [place] % (Auto) 8.2 H Eos % (Auto) 0.6 Baso % (Auto) 0.3 Neut # (Auto) 9.4 H Lymph # (Auto) 1.5 [place] # (Auto) 1.0 H Eos # (Auto) 0.1 Baso # (Auto) 0.0 WBC Differential . Differential Comment . PT 10.4 INR 1.0 APTT 31.8 H Sodium 122 L* Potassium 3.6 Chloride 81 L Carbon Dioxide 30.7 Anion Gap 10 BUN 23 H Creatinine 1.60 H Estimated GFR 30 L Random Glucose 100 Calcium 8.4 L Total Bilirubin 0.4 AST 34 ALT 27 Alkaline Phosphatase 91 Troponin I Less than 0.02 L Total Protein 6.9 Albumin 2.8 L Lipase 204 TSH Ur Collection Type Urine Color Urine Clarity Urine pH Ur Specific [place] Urine Protein Urine Glucose (UA) Urine Ketones Urine Occult Blood Urine Nitrate Urine Bilirubin Urine Urobilinogen Ur Leukocyte Esterase Urine RBC Ur Squamous Epith Cells Micro UA Comment Ur Microscopic Review Urine Culture Comments 04/25/18 04/25/18 11:44 14:22 CBC w Diff WBC RBC Hgb Hct MCV MCH MCHC RDW Plt Count MPV Neut % (Auto) Lymph % (Auto) [place] % (Auto) Eos % (Auto) Baso % (Auto) Neut # (Auto) Lymph # (Auto) [place] # (Auto) Eos # (Auto) Baso # (Auto) WBC Differential Differential Comment PT INR APTT Sodium Potassium Chloride Carbon Dioxide Anion Gap BUN Creatinine Estimated GFR Random Glucose Calcium Total Bilirubin AST ALT Alkaline Phosphatase Troponin I Total Protein Albumin Lipase TSH 5.020 H Ur Collection Type Clean catch Urine Color Yellow Urine Clarity Clear Urine pH 6.5 Ur Specific [place] Less/equal 1.005 Urine Protein Negative Urine Glucose (UA) Negative Urine Ketones Negative Urine Occult Blood Small H Urine Nitrate Negative Urine Bilirubin Negative Urine Urobilinogen 0.2 Ur Leukocyte Esterase Negative Urine RBC 4-15 H Ur Squamous Epith Cells 0-5 Micro UA Comment Culture not ind Ur Microscopic Review Microscopic reviewed Urine Culture Comments Culture not ind - Imaging Impressions Abdomen/Pelvis CT 04/25/18 11:28 CONCLUSION: 1. Mild diverticulosis with no definite inflammatory change. 2. Unremarkable appearing gallbladder. 3. There is a small amount of fluid in the cul-de-sac which is nonspecific finding. 4. No visualized etiology to explain the patient's pain. Chest X-Ray 04/25/18 11:28 CONCLUSION: No acute intrathoracic disease. Stable examination. Head CT 04/25/18 11:32 CONCLUSION: 1. No acute hemorrhage or mass effect. 2. Stable atrophy and chronic small vessel ischemic changes. . Caprini VTE Risk Assessment Caprini VTE Risk Assessment: Moderate/High Risk (score >= 2) Caprini Risk Assessment Model: Point Value = 1 Point Value = 2 Point Value = 3 Point Value = 5 Age 41-60 Minor surgery BMI > 25 kg/m2 Swollen legs Varicose veins or History of unexplained or recurrent spontaneous Oral contraceptives or hormone replacement Sepsis (< 1 month) Serious lung disease, including pneumonia (< 1 month) Abnormal pulmonary function Acute myocardial infarction Congestive heart failure (< 1 month) History of inflammatory bowel disease Medical patient at bed rest Age 61-74 Arthroscopic surgery Major open surgery (> 45 min) Laparoscopic surgery (> 45 min) Malignancy Confined to bed (> 72 hours) Immobilizing plaster cast Central venous access Age >= 75 History of VTE Family history of VTE Factor V Leiden Prothrombin [id number] Lupus anticoagulant Anticardiolipin antibodies Elevated serum homocysteine Heparin-induced thrombocytopenia Other congenital or acquired thrombophilia Stroke (< 1 month) Elective arthroplasty Hip, pelvis, or leg fracture Acute spinal cord injury (< 1 month) Prophylaxis Regimen: Total Risk Factor Score Risk Level Prophylaxis Regimen 0-1 Low Early ambulation 2 Moderate Order ONE of the following: *Sequential Compression Device (SCD) *Heparin 5000 units SQ BID 3-4 Higher Order ONE of the following medications: *Heparin 5000 units SQ TID *Enoxaparin/Lovenox 40 mg SQ daily (WT < 150 kg, CrCl > 30 mL/min) *Enoxaparin/Lovenox 30 mg SQ daily (WT < 150 kg, CrCl > 10-29 mL/min) *Enoxaparin/Lovenox 30 mg SQ BID (WT < 150 kg, CrCl > 30 mL/min) AND/OR *Sequential Compression Device (SCD) 5 or more Highest Order ONE of the following medications: *Heparin 5000 units SQ TID (Preferred with Epidurals) *Enoxaparin/Lovenox 40 mg SQ daily (WT < 150 kg, CrCl > 30 mL/min) *Enoxaparin/Lovenox 30 mg SQ daily (WT < 150 kg, CrCl > 10-29 mL/min) *Enoxaparin/Lovenox 30 mg SQ BID (WT < 150 kg, CrCl > 30 mL/min) AND *Sequential Compression Device (SCD) Assessment and Plan - Assessment (1) Weakness Code(s): R53.1 - Weakness Status: Acute Plan: IV fluid as sodium was low recheck labs will get PT and case management to see (2) Abdominal pain Code(s): R10.9 - Unspecified abdominal pain Status: Acute Plan: more mid abdomen ,CT abdomen unremarkable add IV protonix ask for GI evaluation (3) Hypertension Code(s): I10 - Essential (primary) hypertension Status: Acute Plan: will hold hctz as sodium low also pulse in 40" and is on atenolol 100 will decrease to 50mg for now follow BP (4) Hyponatremia Code(s): E87.1 - Hypo-osmolality and hyponatremia Status: Acute Plan: continue IV ns at 100 cc/hr recheck labs - Plan further plan as case develops Code Status: full Discussed Condition With: patient and family
[2018-04-25] MEDS ORDERED: Pantoprazole Inj 40 MG Vial IV.PUSH ONE (17:00)
--- NOTE | 2018-04-25 18:47 | P.PCN ---
Date of procedure: 04/25/18 Procedure: THANK YOU FOR THE REFERRAL Indication; anemia, abdominal pain Procedure Performed; upper endoscopy with biopsy After informing the patient about procedure and possible complications consent was signed. history and physical were updated. Patient was taken to the procedure room and placed in position. Time out was completed. Adequate sedation was performed by anesthesia provider. Upper Endoscopy, the scope was placed in the mouth advanced under video guide to the second portion of the duodenum, then the scope was withdrawal to the stomach and retro-flexion was performed, the scope was withdrawal to the esophagus then out of the mouth without any immediate complication Findings; Esophagus: Severe grade D esophagitis covering the whole esophagus with deep ulcers biopsy was done Stomach significant gastritis mostly in the antrum biopsy was done to rule out H. pylori Duodenum duodenal bulb ulcer no active bleeding Recommendations; 1- Supportive care 2- ok to transfer to recovery area then discharge per protocol 3-followed by 4-clear liquid diet 5- EGD in 2 months 6-no NSAIDs, no alcohol 7-Protonix 40 mg daily 8-colonoscopy as an outpatient 9-monitor hemoglobin with packed RBC if needed
[2018-04-25] MEDS ORDERED: PEG 3350/E-Lyte Soln 4000 ML Bottle PO ONE (21:30)
[2018-04-25] MEDS: Senna/Docusate Sodium 8.6/50 MG Tablet PO SCH (21:41)
--- NOTE | 2018-04-25 21:47 | MB ---
cc: Cheli Mix MD DATE: 04/25/2018 REFERRING PHYSICIAN: Dr. Torres. REASON FOR REFERRAL: Anemia and abdominal pain. Thank you for the consultation. HISTORY OF PRESENT ILLNESS: A pleasant 87-year-old lady who is not a very good historian despite the fact that she is aware and alert and oriented, but not able to give good history, but she said that she has been tired for at least a month, not feeling well, mostly abdominal pain, intermittent on and off, sometimes associated with nausea and vomiting and the pain is mostly in the midepigastric area, but sometimes gets diffuse. The patient occasionally gets confused and currently feels okay. She said she came in because of worsening of her pain this morning. She was brought by her and she will feel a little bit better, the pain she described as dull, achy, 7/10. No radiation to the back and accompanied with nausea and vomiting sometimes, not sure if it is related to food. No diarrhea or constipation, according to her. PAST MEDICAL HISTORY: Significant for hypertension, depression, anxiety, hypothyroidism, arthritis, and insomnia. PAST SURGICAL HISTORY: Back surgery and hysterectomy. SOCIAL HISTORY: Negative for tobacco at this point. She used to smoke. No drugs. She drinks a few drinks a week. ALLERGIES: METRONIDAZOLE, HYDROCODONE, LOVASTATIN, VERAPAMIL, PAROXETINE. MEDICATIONS: Reviewed in the chart. REVIEW OF SYSTEMS: All 12-points negative except as in HPI. PHYSICAL EXAMINATION: VITAL SIGNS: Stable. HEENT: Pupils round and reactive to light. NECK: Supple. CHEST: Clear to auscultation and percussion. CARDIAC: Regular rate and rhythm. ABDOMEN: Soft, significant discomfort and tenderness, mostly in the upper abdomen in the epigastric area. Positive bowel sounds. No hepatosplenomegaly. EXTREMITIES: No edema, clubbing or cyanosis. NEUROLOGIC: Intact. No focal abnormality. PSYCHOLOGIC: Appropriate. LABORATORY DATA: White count 11.9, hemoglobin 9.9, platelet 505. Liver function tests were normal. BUN 23, creatinine 1.6. Lipase was normal. CT scan did not show any acute findings. The patient had some diverticulosis. ASSESSMENT AND PLAN: An 87-year-old lady with abdominal pain accompanied with nausea and vomiting. This has been going on for a while, the patient does not know if she lost weight. She is significantly anemic, could be chronic disease, but because of this in combination with abdominal pain, I recommend doing upper endoscopy and a colonoscopy. I discussed with the patient the procedure and complications. She agreed to have this done, which will be done tomorrow. We will start prepping her. Meanwhile, we will continue supportive care, check hemoglobin and give packed RBC as needed. MD MADHU Hernández/anselmo , 09:20 PM , 09:31 PM
[2018-04-26 07:09] LABS: Calcium 8.1 mg/dL (8.5-10.1); Carbon Dioxide 30.7 meq/L (21.0-32.0); Potassium 3.1 meq/L (3.5-5.1)
[2018-04-26] MEDS ORDERED: Lidocaine PF 1% Inj 5 ML Syringe INFILTRATN ONE (07:41)
--- NOTE | 2018-04-26 08:08 | P.PCN ---
Date of procedure: 04/26/18 Procedure: THANK YOU FOR THE REFERRAL This is the correct report on this patient please ignore previous report placed in error Indication; abdominal pain, anemia Procedure Performed; upper endoscopy: With biopsy, dilation of esophageal stricture with a guidewire Colonoscopy: Diagnostic After informing the patient about procedure and possible complications consent was signed. history and physical were updated. Patient was taken to the procedure room and placed in position. Time out was completed. Adequate sedation was performed by anesthesia provider. Upper Endoscopy, the scope was placed in the mouth advanced under video guide to the second portion of the duodenum, then the scope was withdrawal to the stomach and retro-flexion was performed, the scope was withdrawal to the esophagus then out of the mouth without any immediate complication Colonoscopy, rectal exam was performed the scope was placed in the rectum advanced under video guide to the cecum which was identified by ileo-cecal valve and appendiceal orifice, then the scope withdrawal slowly with examination of the mucosa to the rectum and retro-flexion was performed, the scope was withdrawal without any immediate complication Findings; colonoscopy, prep good Colon: Diverticular disease throughout the colon Rectum: Small hemorrhoid Esophagus: Distal esophageal ring status post dilation with savory guidewire size 16 mm Stomach: Mild gastritis biopsy from the antrum Duodenum: Large ulcer in the duodenal bulb deep no active bleeding but high risk for bleeding, biopsy was done from the edges, most likely the reason for the pain and the anemia Recommendations; 1- Supportive care 2- ok to transfer to recovery area then discharge per protocol 3-cardiac diet 4-Hemoccult on a yearly basis by primary care physician 5-colonoscopy as needed 6- EGD as needed 7-follow-up biopsy 9-Protonix 40 mg daily 10-no NSAIDs 11-monitor H&H
--- NOTE | 2018-04-26 08:09 | P.PNGI ---
Subjective Interval history: Patient laying in bed comfortably, no new complaint, still some abdominal discomfort, tolerated prep well Physical Exam Vital signs: Vital Signs 04/25/18 11:07 04/25/18 11:53 04/25/18 12:20 Temperature 98.0 F Pulse Rate 48 L 46 L 45 L Respiratory Rate 15 15 14 Blood Pressure 105/46 L 112/44 L 109/51 L Pulse Oximetry 99 99 99 04/25/18 13:20 04/25/18 14:13 04/25/18 15:00 Temperature Pulse Rate 46 L 48 L Respiratory Rate 14 20 Blood Pressure 108/47 L 109/51 L Pulse Oximetry 98 98 97 04/25/18 15:25 04/25/18 20:00 04/25/18 20:05 Temperature 96.3 F L 97.4 F L Pulse Rate 51 L 48 L Respiratory Rate 16 16 Blood Pressure 142/65 H 141/64 H Pulse Oximetry 99 98 97 04/26/18 00:00 04/26/18 04:00 04/26/18 07:05 Temperature 96.5 F L 97.2 F L 98.5 F Pulse Rate 56 L 55 L 56 L Respiratory Rate 16 16 20 Blood Pressure 168/71 H 149/65 H 148/69 H Pulse Oximetry 98 96 97 Intake & Output 04/25/18 04/26/18 04/26/18 18:59 06:59 18:59 Intake Total 300 / 300 1400 / 1400 Output Total 653 / 653 Balance 300 / 300 747 / 747 Weight 53.07 kg 53.07 kg Intake: IV 300 / 300 400 / 400 NS Inj 1,000 ML @ 100 mls/hr IV 300 / 300 400 / 400 .CONT .Q10H [facility] Rx#:[id number] Oral 1000 / 1000 Output: Urine 650 / 650 Urine/Stool Mix 3 / 3 Other: # Voids 3 - Constitutional no acute distress - Routine HEENT Exam Head: Present: normocephalic, atraumatic Eye: Present: EOMI, PERRL ENT: Present: mucous membranes moist - Routine Neck Exam Present: supple, full ROM - Routine Respiratory Exam Present: CTA bilaterally - Routine Cardiovascular Exam Present: RRR, S1, S2 - Routine Abdominal Exam Present: soft, normoactive bowel sounds, tenderness Results - Labs CBC & Chem 7: 04/25/18 11:44 04/26/18 04:50 Laboratory Results - last 24 hr 04/25/18 04/25/18 04/25/18 11:44 11:44 11:44 CBC w Diff Auto diff final WBC 11.9 H RBC 3.43 L Hgb 9.9 L Hct 30.6 L MCV 89.2 MCH 28.8 MCHC 32.3 RDW 12.7 Plt Count 505 H MPV 6.5 L Neut % (Auto) 78.3 H Lymph % (Auto) 12.6 [place] % (Auto) 8.2 H Eos % (Auto) 0.6 Baso % (Auto) 0.3 Neut # (Auto) 9.4 H Lymph # (Auto) 1.5 [place] # (Auto) 1.0 H Eos # (Auto) 0.1 Baso # (Auto) 0.0 WBC Differential . Differential Comment . PT 10.4 INR 1.0 APTT 31.8 H Sodium 122 L* Potassium 3.6 Chloride 81 L Carbon Dioxide 30.7 Anion Gap 10 BUN 23 H Creatinine 1.60 H Estimated GFR 30 L Random Glucose 100 Calcium 8.4 L Total Bilirubin 0.4 AST 34 ALT 27 Alkaline Phosphatase 91 Troponin I Less than 0.02 L Total Protein 6.9 Albumin 2.8 L Lipase 204 TSH Ur Collection Type Urine Color Urine Clarity Urine pH Ur Specific [place] Urine Protein Urine Glucose (UA) Urine Ketones Urine Occult Blood Urine Nitrate Urine Bilirubin Urine Urobilinogen Ur Leukocyte Esterase Urine RBC Ur Squamous Epith Cells Micro UA Comment Ur Microscopic Review Urine Culture Comments 04/25/18 04/25/18 04/26/18 11:44 14:22 04:50 CBC w Diff WBC RBC Hgb Hct MCV MCH MCHC RDW Plt Count MPV Neut % (Auto) Lymph % (Auto) [place] % (Auto) Eos % (Auto) Baso % (Auto) Neut # (Auto) Lymph # (Auto) [place] # (Auto) Eos # (Auto) Baso # (Auto) WBC Differential Differential Comment PT INR APTT Sodium 130 L Potassium 3.1 L Chloride 89 L D Carbon Dioxide 30.7 Anion Gap 10 BUN 17 Creatinine 0.98 Estimated GFR 54 L Random Glucose 81 Calcium 8.1 L Total Bilirubin AST ALT Alkaline Phosphatase Troponin I Total Protein Albumin Lipase TSH 5.020 H Ur Collection Type Clean catch Urine Color Yellow Urine Clarity Clear Urine pH 6.5 Ur Specific [place] Less/equal 1.005 Urine Protein Negative Urine Glucose (UA) Negative Urine Ketones Negative Urine Occult Blood Small H Urine Nitrate Negative Urine Bilirubin Negative Urine Urobilinogen 0.2 Ur Leukocyte Esterase Negative Urine RBC 4-15 H Ur Squamous Epith Cells 0-5 Micro UA Comment Culture not ind Ur Microscopic Review Microscopic reviewed Urine Culture Comments Culture not ind - Imaging Impressions Abdomen/Pelvis CT 04/25/18 11:28 CONCLUSION: 1. Mild diverticulosis with no definite inflammatory change. 2. Unremarkable appearing gallbladder. 3. There is a small amount of fluid in the cul-de-sac which is nonspecific finding. 4. No visualized etiology to explain the patient's pain. Chest X-Ray 04/25/18 11:28 CONCLUSION: No acute intrathoracic disease. Stable examination. Head CT 04/25/18 11:32 CONCLUSION: 1. No acute hemorrhage or mass effect. 2. Stable atrophy and chronic small vessel ischemic changes. . Assessment and Plan - Plan Patient is a 87-year-old lady with anemia and abdominal pain, patient had upper endoscopy and colonoscopy today Findings; colonoscopy, prep good Colon: Diverticular disease throughout the colon Rectum: Small hemorrhoid Esophagus: Distal esophageal ring status post dilation with savory guidewire size 16 mm Stomach: Mild gastritis biopsy from the antrum Duodenum: Large ulcer in the duodenal bulb deep no active bleeding but high risk for bleeding, biopsy was done from the edges, most likely the reason for the pain and the anemia Recommendations; 1- Supportive care 2- ok to transfer to recovery area then discharge per protocol 3-cardiac diet 4-Hemoccult on a yearly basis by primary care physician 5-colonoscopy as needed 6- EGD as needed 7-follow-up biopsy 9-Protonix 40 mg daily 10-no NSAIDs 11-monitor H&H
[2018-04-26] MEDS ORDERED: [UNRECOGNIZED DRUG - REMARK] PO SCH (09:00)
[2018-04-26] MEDS: Atenolol 50 MG Tablet PO SCH (09:41)
[2018-04-26] MEDS: Levothyroxine 50 MCG Tablet PO SCH (09:42)
[2018-04-26] MEDS: Senna/Docusate Sodium 8.6/50 MG Tablet PO SCH ×2 (09:42→21:21)
[2018-04-26] MEDS: Sertraline 50 MG Tablet PO SCH (09:42)
[2018-04-26] MEDS: Calcium/Vitamin D 250/125 MG Tablet PO SCH (09:42)
[2018-04-26] MEDS: amLODIPine 10 MG Tablet PO SCH (09:43)
[2018-04-26] MEDS: Gabapentin 300 MG Capsule PO SCH (09:43)
[2018-04-26] MEDS: Folic Acid 1 MG Tablet PO SCH (09:43)
[2018-04-26] MEDS: Vitamins A,C,E/Lutein/Minerals Tablet PO SCH (09:51)
[2018-04-26] MEDS ORDERED: Potassium Chloride 10 MEQ ER Capsule PO ONE (10:55)
--- NOTE | 2018-04-26 11:11 | P.PN ---
Subjective Interval history: Patient feeling better this am was seen by GI and had pancolonoscopy showed diverticular disease ,distal esopageal ring S/P dilatation ,gastritis,large ulcer duodenal bulb s/p biopsies . Patient sodium level better does have some anemia will follow labs moniotr today await rehab evaluation ,i feel needs rehab to watch for a few days. Physical Exam Vital signs: Vital Signs 04/25/18 11:07 04/25/18 11:53 04/25/18 12:20 Temperature 98.0 F Pulse Rate 48 L 46 L 45 L Respiratory Rate 15 15 14 Blood Pressure 105/46 L 112/44 L 109/51 L Pulse Oximetry 99 99 99 04/25/18 13:20 04/25/18 14:13 04/25/18 15:00 Temperature Pulse Rate 46 L 48 L Respiratory Rate 14 20 Blood Pressure 108/47 L 109/51 L Pulse Oximetry 98 98 97 04/25/18 15:25 04/25/18 20:00 04/25/18 20:05 Temperature 96.3 F L 97.4 F L Pulse Rate 51 L 48 L Respiratory Rate 16 16 Blood Pressure 142/65 H 141/64 H Pulse Oximetry 99 98 97 04/26/18 00:00 04/26/18 04:00 04/26/18 07:05 Temperature 96.5 F L 97.2 F L 98.5 F Pulse Rate 56 L 55 L 56 L Respiratory Rate 16 16 20 Blood Pressure 168/71 H 149/65 H 148/69 H Pulse Oximetry 98 96 97 04/26/18 08:00 04/26/18 08:05 04/26/18 08:20 Temperature 97.4 F L 97.4 F L Pulse Rate 53 L 47 L 47 L Respiratory Rate 14 14 Blood Pressure 85/47 L 85/47 L Pulse Oximetry 100 100 04/26/18 08:35 04/26/18 08:50 04/26/18 09:00 Temperature 96 F L Pulse Rate 45 L 46 L 55 L Respiratory Rate 14 15 20 Blood Pressure 94/49 L 109/54 L 160/68 H Pulse Oximetry 100 97 04/26/18 09:05 Temperature 97.7 F Pulse Rate 50 L Respiratory Rate 15 Blood Pressure 135/65 Pulse Oximetry Intake & Output 04/25/18 04/26/18 04/26/18 18:59 06:59 18:59 Intake Total 300 / 300 1400 / 1400 300 / 300 Output Total 653 / 653 Balance 300 / 300 747 / 747 300 / 300 Weight 53.07 kg 53.07 kg Intake: IV 300 / 300 400 / 400 NS Inj 1,000 ML @ 100 mls/hr IV 300 / 300 400 / 400 .CONT .Q10H [facility] Rx#:[id number] Oral 1000 / 1000 Anesthesia Amount 300 / 300 Output: Urine 650 / 650 Urine/Stool Mix 3 / 3 Other: # Voids 3 Narrative: GENERAL: SKIN: Warm and dry. HEAD: Normocephalic. EYES: No scleral icterus. No injection or drainage. NECK: Supple, trachea midline. No JVD or lymphadenopathy. CARDIOVASCULAR: Regular rate and rhythm without murmurs, gallops, or rubs. RESPIRATORY: Breath sounds equal bilaterally. No accessory muscle use. GASTROINTESTINAL: Abdomen soft, non-tender, nondistended. MUSCULOSKELETAL: No cyanosis, or edema. BACK: Nontender without obvious deformity. No CVA tenderness. Results - Labs CBC & Chem 7: 04/25/18 11:44 04/26/18 04:50 Laboratory Results - last 24 hr 04/25/18 04/25/18 04/25/18 11:44 11:44 11:44 CBC w Diff Auto diff final WBC 11.9 H RBC 3.43 L Hgb 9.9 L Hct 30.6 L MCV 89.2 MCH 28.8 MCHC 32.3 RDW 12.7 Plt Count 505 H MPV 6.5 L Neut % (Auto) 78.3 H Lymph % (Auto) 12.6 [place] % (Auto) 8.2 H Eos % (Auto) 0.6 Baso % (Auto) 0.3 Neut # (Auto) 9.4 H Lymph # (Auto) 1.5 [place] # (Auto) 1.0 H Eos # (Auto) 0.1 Baso # (Auto) 0.0 WBC Differential . Differential Comment . PT 10.4 INR 1.0 APTT 31.8 H Sodium 122 L* Potassium 3.6 Chloride 81 L Carbon Dioxide 30.7 Anion Gap 10 BUN 23 H Creatinine 1.60 H Estimated GFR 30 L Random Glucose 100 Calcium 8.4 L Total Bilirubin 0.4 AST 34 ALT 27 Alkaline Phosphatase 91 Troponin I Less than 0.02 L Total Protein 6.9 Albumin 2.8 L Lipase 204 TSH Ur Collection Type Urine Color Urine Clarity Urine pH Ur Specific [place] Urine Protein Urine Glucose (UA) Urine Ketones Urine Occult Blood Urine Nitrate Urine Bilirubin Urine Urobilinogen Ur Leukocyte Esterase Urine RBC Ur Squamous Epith Cells Micro UA Comment Ur Microscopic Review Urine Culture Comments 04/25/18 04/25/18 04/26/18 11:44 14:22 04:50 CBC w Diff WBC RBC Hgb Hct MCV MCH MCHC RDW Plt Count MPV Neut % (Auto) Lymph % (Auto) [place] % (Auto) Eos % (Auto) Baso % (Auto) Neut # (Auto) Lymph # (Auto) [place] # (Auto) Eos # (Auto) Baso # (Auto) WBC Differential Differential Comment PT INR APTT Sodium 130 L Potassium 3.1 L Chloride 89 L D Carbon Dioxide 30.7 Anion Gap 10 BUN 17 Creatinine 0.98 Estimated GFR 54 L Random Glucose 81 Calcium 8.1 L Total Bilirubin AST ALT Alkaline Phosphatase Troponin I Total Protein Albumin Lipase TSH 5.020 H Ur Collection Type Clean catch Urine Color Yellow Urine Clarity Clear Urine pH 6.5 Ur Specific [place] Less/equal 1.005 Urine Protein Negative Urine Glucose (UA) Negative Urine Ketones Negative Urine Occult Blood Small H Urine Nitrate Negative Urine Bilirubin Negative Urine Urobilinogen 0.2 Ur Leukocyte Esterase Negative Urine RBC 4-15 H Ur Squamous Epith Cells 0-5 Micro UA Comment Culture not ind Ur Microscopic Review Microscopic reviewed Urine Culture Comments Culture not ind - Imaging Impressions Abdomen/Pelvis CT 04/25/18 11:28 CONCLUSION: 1. Mild diverticulosis with no definite inflammatory change. 2. Unremarkable appearing gallbladder. 3. There is a small amount of fluid in the cul-de-sac which is nonspecific finding. 4. No visualized etiology to explain the patient's pain. Chest X-Ray 04/25/18 11:28 CONCLUSION: No acute intrathoracic disease. Stable examination. Head CT 04/25/18 11:32 CONCLUSION: 1. No acute hemorrhage or mass effect. 2. Stable atrophy and chronic small vessel ischemic changes. . - Procedures colon and endoscopy Assessment and Plan - Assessment (1) Weakness Code(s): R53.1 - Weakness Status: Acute Plan: IV fluid to continue sodium improved await PT (2) Abdominal pain Code(s): R10.9 - Unspecified abdominal pain Status: Acute Plan: improving ,with esophageal ring and gastritis and large ulcer duodenal (3) Hypertension Code(s): I10 - Essential (primary) hypertension Status: Acute Plan: will hold hctz as sodium low also pulse in 40" and is on atenolol 100 will decrease to 50mg for now follow BP (4) Hyponatremia Code(s): E87.1 - Hypo-osmolality and hyponatremia Status: Acute Plan: continue IV ns at 100 cc/hr recheck labs (5) Duodenal ulcer Code(s): K26.9 - Duodenal ulcer, unspecified as acute or chronic, without hemorrhage or perforation Status: Acute Plan: continue protonix today po tomorrow (6) Anemia Code(s): D64.9 - Anemia, unspecified Status: Acute Plan: anemia secondary to gi results ulcer and esophageal ring follow labs,i feel should go to rehab to watch and follow labs - Plan further plan as case develops
[2018-04-26] MEDS: Magnesium Oxide 400 MG Tablet PO SCH (11:20)
[2018-04-26] MEDS ORDERED: Pantoprazole Inj 40 MG Vial IV.PUSH SCH (17:00)
--- NOTE | 2018-04-26 18:53 | ECG ---
Date Performed: 04/25/2018 Time Performed: 11:42:01 PTAGE: 87 years EKG: SINUS BRADYCARDIA LEFT BUNDLE BRANCH BLOCK ABNORMAL ECG PREVIOUS TRACING : 04/03/2011 13.25 DOCTOR: Leonidas Mcleod Interpretating Date/Time 04/26/2018 18:52:21
[2018-04-27 04:51] VITALS: PULSE 57
[2018-04-27] MEDS: Levothyroxine 50 MCG Tablet PO SCH (06:22)
[2018-04-27 06:32] LABS: Baso # (Auto) 0.1 th/mm3 (0.0-0.2); Baso % (Auto) 0.9 % (0.0-2.0); Eos # (Auto) 0.2 th/mm3 (0.0-0.4); Eos % (Auto) 2.1 % (0.0-4.0); Hematocrit 29.6 % (35.0-46.0); Hemoglobin 9.5 gm/dL (11.6-15.3); Lymph # (Auto) 1.8 th/mm3 (1.0-4.8); Mean Corpuscular HGB Conc 31.9 % (32.0-36.0); Mean Corpuscular Hemoglobin 28.6 pg (27.0-34.0); Mean Corpuscular Volume 89.7 fL (80.0-100.0); Mean Platelet Volume 7.1 fL (7.0-11.0); Mono % (Auto) 11.4 % (0.0-8.0); Neut # (Auto) 5.7 th/mm3 (1.8-7.7); Neut % (Auto) 65.6 % (16.0-70.0); Platelet Count 489 th/mm3 (150-450); Red Blood Count 3.31 mil/mm3 (4.00-5.30); Red Cell Distribution Width 12.7 % (11.6-17.2); White Blood Count 8.8 th/mm3 (4.0-11.0)
[2018-04-27 07:01] LABS: Calcium 8.7 mg/dL (8.5-10.1)
[2018-04-27 07:02] LABS: Carbon Dioxide 29.3 meq/L (21.0-32.0)
[2018-04-27 08:33] VITALS: RESP 16
[2018-04-27] MEDS: Calcium/Vitamin D 250/125 MG Tablet PO SCH (08:50)
[2018-04-27] MEDS: amLODIPine 10 MG Tablet PO SCH (08:50)
[2018-04-27] MEDS: Sertraline 50 MG Tablet PO SCH (08:50)
[2018-04-27] MEDS: Senna/Docusate Sodium 8.6/50 MG Tablet PO SCH (08:50)
[2018-04-27] MEDS: Gabapentin 300 MG Capsule PO SCH (08:51)
[2018-04-27] MEDS: Folic Acid 1 MG Tablet PO SCH (08:51)
[2018-04-27] MEDS: Atenolol 50 MG Tablet PO SCH (08:51)
[2018-04-27] MEDS ORDERED: Ferrous Sulfate 325 MG Tablet PO SCH (09:00)
[2018-04-27] MEDS: Vitamins A,C,E/Lutein/Minerals Tablet PO SCH (09:59)
[2018-04-27] MEDS: Magnesium Oxide 400 MG Tablet PO SCH (10:00)
--- NOTE | 2018-04-27 10:53 | P.DS ---
Date of admission: 04/25/18 13:57 Primary care physician: Jennifer Garcia MD Attending physician on discharge: Gustabo Torres Anticipated date of discharge: 04/27/18 Brief History from admission: HPI narrative: This 87-year-old female has not been feeling well for the past month or so. She has had intermittent bouts of abdominal pain. When she has the abdominal pain it seems to be in the mid abdomen. It is sometimes associated with vomiting and nausea. She has been disoriented off and on. Her says that she gets confused at times but at other times she seems to be okay this morning she was getting up and she got very weak and she fell to her knees. He says he did not lose consciousness but she had to be put in bed at that time and he called paramedics she has no history of heart disease. She has not been having fever. He was seen here last week and was diagnosed with costochondritis. She did eat something this morning in general her appetite is been quite poor. She states since having abdominal pain the appetite has been poor ,she called PCP and was just started on prilosec yesterday. Denies any BRBPR, chest pain,SOB did have UTI in february. Denies syncope some unsteadiness. Related Data Home Medications Patient update on day of discharge: to rehab to follow bmp and cbc continue new meds iron one a day,decrease atenolol 50 and protonix 40 daily DS: Diagnosis - Discharge Diagnosis (1) Weakness Status: Acute (2) Abdominal pain Status: Acute (3) Hypertension Status: Acute (4) Hyponatremia Status: Acute (5) Duodenal ulcer Status: Acute (6) Anemia Status: Acute DS: Summary Hospital Course: Patient admitted ,and started on IV normal saline, IV Protonix daily, consulted to gastroenterology. Patient's sodium improved to 131 prior to discharge, from 122 electrolytes showed a low potassium we started on potassium supplementation , patient was very weak and we did ask for physical therapy evaluation they did evaluate her actually she did very well but I still feel she needs to be in rehab at least to check her labs for improvement in sodium and potassium. Patient had an endoscopy and colonoscopy done by GI colonoscopy showed diverticulosis, endoscopy showed an esophageal ring which was dilated and a duodenal ulcer which was not actively bleeding. I feel patient needs rehab for medical reasons as stated above and will be discharged to rehab will I will follow her up in the labs we may need IV the IV will be DC'd here and will be restarted based on lab work that will be done in tomorrow morning. Patient being discharged in stable condition. - Time Spent with Patient Total time spent providing and/or coordinating discharge services: Greater than 30 minutes - Quality: VTE Deep Vein Thrombosis/Pulmonary Embolism Present on Admission: No Exam Vital signs: Vital Signs 04/26/18 12:00 04/26/18 16:00 04/26/18 20:00 Temperature 98.3 F 97.5 F L Pulse Rate 53 L 57 L Respiratory Rate 20 20 Blood Pressure 153/69 H 132/62 Pulse Oximetry 98 98 97 04/26/18 22:00 04/27/18 00:00 04/27/18 00:23 Temperature 98.3 F 96.3 F L Pulse Rate 53 L 49 L 56 L Respiratory Rate 18 18 Blood Pressure 125/76 122/60 Pulse Oximetry 96 98 04/27/18 04:00 04/27/18 08:00 Temperature 97.2 F L 97.6 F Pulse Rate 57 L 57 L Respiratory Rate 20 16 Blood Pressure 128/62 131/61 Pulse Oximetry 97 98 Intake & Output 04/26/18 04/27/18 04/27/18 18:59 06:59 18:59 Intake Total 660 / 660 240 / 240 Balance 660 / 660 240 / 240 Weight 54 kg Intake: Oral 360 / 360 240 / 240 Anesthesia Amount 300 / 300 Other: # Voids 6 2 Date of Last Bowel Movement 04/25/18 04/25/18 # Bowel Movements 0 Narrative: GENERAL: SKIN: Warm and dry. HEAD: Normocephalic. EYES: No scleral icterus. No injection or drainage. NECK: Supple, trachea midline. No JVD or lymphadenopathy. CARDIOVASCULAR: Regular rate and rhythm without murmurs, gallops, or rubs. RESPIRATORY: Breath sounds equal bilaterally. No accessory muscle use. GASTROINTESTINAL: Abdomen soft, non-tender, nondistended. MUSCULOSKELETAL: No cyanosis, or edema. BACK: Nontender without obvious deformity. No CVA tenderness. Results Procedures completed during hospitalization: colon and endoscopy Completed studies during hospitalization: endoscopy and colonoscopy Pending studies at discharge: Pending at discharge 04/26/18 14:01 Surgical [PTH] Routine Labs on day of discharge: Labs from last 24 hours 04/27/18 04/27/18 05:30 05:30 CBC w Diff Auto diff final WBC 8.8 RBC 3.31 L Hgb 9.5 L Hct 29.6 L MCV 89.7 MCH 28.6 MCHC 31.9 L RDW 12.7 Plt Count 489 H MPV 7.1 Neut % (Auto) 65.6 Lymph % (Auto) 20.0 [place] % (Auto) 11.4 H Eos % (Auto) 2.1 Baso % (Auto) 0.9 Neut # (Auto) 5.7 Lymph # (Auto) 1.8 [place] # (Auto) 1.0 H Eos # (Auto) 0.2 Baso # (Auto) 0.1 WBC Differential . Differential Comment . Sodium 131 L Potassium 3.0 L Chloride 91 L Carbon Dioxide 29.3 Anion Gap 11 BUN 14 Creatinine 0.94 Estimated GFR 56 L Random Glucose 92 Calcium 8.7 - Impressions ITS Impressions Abdomen/Pelvis CT 04/25/18 11:28 CONCLUSION: 1. Mild diverticulosis with no definite inflammatory change. 2. Unremarkable appearing gallbladder. 3. There is a small amount of fluid in the cul-de-sac which is nonspecific finding. 4. No visualized etiology to explain the patient's pain. Chest X-Ray 04/25/18 11:28 CONCLUSION: No acute intrathoracic disease. Stable examination. Head CT 04/25/18 11:32 CONCLUSION: 1. No acute hemorrhage or mass effect. 2. Stable atrophy and chronic small vessel ischemic changes. . Discharge Plan - Discharge Disposition Patient Disposition: 03 Discharge to SNF - Discharge Condition Condition: Good - Discharge Order Discharge Orders: Discharge Order (Routine); Ordered 04/27/18 Ordered By: Gustabo Torres - Discharge Details Anticipated Discharge Date: 04/27/18 - Physicians Team Primary Care Provider: Jennifer Garcia Attending Provider: Gustabo Torres Other Providers: Cheli Mix MD ; Nicci Alarcon,Renate
[2018-04-27 12:02] VITALS: BP 127/58; TEMP 97; O2SAT 97
== END 2018-04-27 14:35 ==
LOC: PHEDA 11:01 → PHED 11:01 → PH3 15:00
PROVIDERS: ADMIT Internal Medicine; ATTEND Internal Medicine
PROC: COLONOS (2018-04-26 07:34)
PROC: PANENDO (2018-04-26 07:34)